=== PATIENT | male | born 1950 | race Caucasian/White ===

== ENCOUNTER 2017-02-03 10:44 | Emergency (ER) | END 2017-02-03 12:44 | disposition home or self-care (01) | DX: Z46.6 Encounter for fitting and adjustment of urinary device (principal); N30.90 Cystitis, unspecified without hematuria ==

== ENCOUNTER 2017-05-28 10:01 | Emergency (ER) | payer OTHER ==
[~2017-05-28] VITALS: Ht 170.2 cm; Wt 67.9 kg
[~2017-05-28 10:01] MED LIST: CIPR500T4 PO
[2017-05-28 10:04] VITALS: Ht 170.2 cm; Wt 67.9 kg
--- NOTE | 2017-05-28 11:30 | ERD ---
ER Documentation Chief Complaint Chief Complaint PAINFUL URINATION SINCE LAST NIGHT HPI 66y/o male patient with history of benign prostatic hyper hyperplasia with frequent episodes of urinary retention,presents to the emergency department c/o pelvic pain and unable to void for the last 12 hours. Pain is dull, rated 8/10, without radiation. The symptoms are associated with mild nausea. Denies dysuria , fever, chills, V/D. Positive history of previous episodes. Current treatment includes terazosin and Proscar, the patient has an appointment with his urologist next week ROS All systems reviewed and are negative except as per history of present illness. Medications Home Meds Active Scripts Ciprofloxacin Hcl* (Ciprofloxacin Hcl*) 500 Mg Tablet, 500 MG PO BID, #14 TAB Prov:EMILIANO HURT PA-C 02/03/17 Allergies Allergies: Coded Allergies: No Known Drug Allergies (Verified Allergy, 07/13/11) PMhx/Soc History of Surgery: No Anesthesia Reaction: No Hx Neurological Disorder: No Hx Respiratory Disorders: No Hx Cardiac Disorders: No Hx Psychiatric Problems: No Hx Miscellaneous Medical Probl: No (enlarge prostate) Hx Alcohol Use: No Hx Substance Use: No Hx Tobacco Use: No Physical Exam Vitals Vital Signs Date Time Temp Pulse Resp B/P Pulse Ox O2 Delivery O2 Flow Rate FiO2 05/28/17 14:01 98.4 71 19 132/78 100 Room Air 05/28/17 10:04 98.2 76 18 123/72 99 Physical Exam Const: Alert, oriented, in mild distress due to pain and discomfort Head: Atraumatic Eyes: Normal Conjunctiva ENT: Normal External Ears, Nose and Mouth. Neck: Full range of motion..~ No meningismus. Resp: Clear to auscultation bilaterally Cardio: Regular rate and rhythm, no murmurs Abd: Soft, pelvic distended. Normal bowel sounds Results 24 hrs Laboratory Tests Test 05/28/17 11:40 Urine Color YELLOW Urine Clarity CLEAR Urine pH 6.0 Urine Specific [place] 1.012 Urine Ketones NEGATIVEmg/dL Urine Nitrite NEGATIVEmg/dL Urine Bilirubin NEGATIVEmg/dL Urine Urobilinogen NEGATIVEmg/dL Urine Leukocyte Esterase NEGATIVELeu/ul Urine Hemoglobin NEGATIVEmg/dL Urine Glucose NEGATIVEmg/dL Urine Total Protein NEGATIVEmg/dl Procedures/MDM 66y/o male patient with history of BPH, presents to the ED c/o urinary retention for more than 12 hours. Vital signs stable, Physical exam showed distended and tender pelvic area. Differential diagnosis include but not limited to: UTI, mechanical obstruction, neurogenic bladder. Pertinent Data: Urinalysis: Within normal range Physical examination and clinical presentation consistent most likely with urinary retention secondary to BPH. During the ED course a Pickett was placed without complications obtaining clear diuresis presenting overall improvement of the symptoms. Results and medical impression discussed with patient who agrees with management. The patient will be discharged home with follow-up with his urologist next week If symptoms persist, worsen or new symptoms develop, then patient is instructed to follow-up with the primary care provider. If the patient is unable to see the primary care provider, then return to the ED immediately. Departure Diagnosis: Primary Impression: Acute urinary retention Additional Impression: BPH (benign prostatic hyperplasia) Condition: Stable Additional Instructions: Muchas kamron por [facility] para bailey servicio. Esperamos que en bailey visita a la kaylan de emergencia bailey problema medico haya sido solucionado y que se sienta mucho mejor. Para estar seguros que bailey mejoria sigue en proceso, le pedimos el favor de hacer amber tracee de seguimiento medico con bailey doctor primario en los proximos 2-4 edwards. Lleve con usted estos documentos y las medicinas recetadas. Si maya sintomas empeoran y no puede beulah a bailey doctor, por favor regrese a kaylan de emergencia. En beau que usted no tenga un mdico de atencin primaria: Llame al mdico o clnica comunitaria de referencia que aparece abajo tobias las horas de consultorio para hacer amber tracee para que le vean. CLINICAS: [facility] 673 [phone] [address] [facility] [phone] [address] [facility] [phone] [address] [facility] 322 [phone] [facility] 761 [phone] 6801 [facility] [phone] PRASANNA LONG MD May 28, 2017 11:30
--- NOTE | 2017-05-28 11:30 | ERD ---
ER Documentation Chief Complaint Chief Complaint PAINFUL URINATION SINCE LAST NIGHT HPI 66y/o male patient with history of benign prostatic hyper hyperplasia with frequent episodes of urinary retention,presents to the emergency department c/o pelvic pain and unable to void for the last 12 hours. Pain is dull, rated 8/10, without radiation. The symptoms are associated with mild nausea. Denies dysuria , fever, chills, V/D. Positive history of previous episodes. Current treatment includes terazosin and Proscar, the patient has an appointment with his urologist next week ROS All systems reviewed and are negative except as per history of present illness. Medications Home Meds Active Scripts Ciprofloxacin Hcl* (Ciprofloxacin Hcl*) 500 Mg Tablet, 500 MG PO BID, #14 TAB Prov:EMILIANO HURT PA-C 02/03/17 Allergies Allergies: Coded Allergies: No Known Drug Allergies (Verified Allergy, 07/13/11) PMhx/Soc History of Surgery: No Anesthesia Reaction: No Hx Neurological Disorder: No Hx Respiratory Disorders: No Hx Cardiac Disorders: No Hx Psychiatric Problems: No Hx Miscellaneous Medical Probl: No (enlarge prostate) Hx Alcohol Use: No Hx Substance Use: No Hx Tobacco Use: No Physical Exam Vitals Vital Signs Date Time Temp Pulse Resp B/P Pulse Ox O2 Delivery O2 Flow Rate FiO2 05/28/17 14:01 98.4 71 19 132/78 100 Room Air 05/28/17 10:04 98.2 76 18 123/72 99 Physical Exam Const: Alert, oriented, in mild distress due to pain and discomfort Head: Atraumatic Eyes: Normal Conjunctiva ENT: Normal External Ears, Nose and Mouth. Neck: Full range of motion..~ No meningismus. Resp: Clear to auscultation bilaterally Cardio: Regular rate and rhythm, no murmurs Abd: Soft, pelvic distended. Normal bowel sounds Results 24 hrs Laboratory Tests Test 05/28/17 11:40 Urine Color YELLOW Urine Clarity CLEAR Urine pH 6.0 Urine Specific [place] 1.012 Urine Ketones NEGATIVEmg/dL Urine Nitrite NEGATIVEmg/dL Urine Bilirubin NEGATIVEmg/dL Urine Urobilinogen NEGATIVEmg/dL Urine Leukocyte Esterase NEGATIVELeu/ul Urine Hemoglobin NEGATIVEmg/dL Urine Glucose NEGATIVEmg/dL Urine Total Protein NEGATIVEmg/dl Procedures/MDM 66y/o male patient with history of BPH, presents to the ED c/o urinary retention for more than 12 hours. Vital signs stable, Physical exam showed distended and tender pelvic area. Differential diagnosis include but not limited to: UTI, mechanical obstruction, neurogenic bladder. Pertinent Data: Urinalysis: Within normal range Physical examination and clinical presentation consistent most likely with urinary retention secondary to BPH. During the ED course a Pickett was placed without complications obtaining clear diuresis presenting overall improvement of the symptoms. Results and medical impression discussed with patient who agrees with management. The patient will be discharged home with follow-up with his urologist next week If symptoms persist, worsen or new symptoms develop, then patient is instructed to follow-up with the primary care provider. If the patient is unable to see the primary care provider, then return to the ED immediately. Departure Diagnosis: Primary Impression: Acute urinary retention Additional Impression: BPH (benign prostatic hyperplasia) Condition: Stable Additional Instructions: Muchas kamron por [facility] para bailey servicio. Esperamos que en bailey visita a la kaylan de emergencia bailey problema medico haya sido solucionado y que se sienta mucho mejor. Para estar seguros que bailey mejoria sigue en proceso, le pedimos el favor de hacer amber tracee de seguimiento medico con bailey doctor primario en los proximos 2-4 edwards. Lleve con usted estos documentos y las medicinas recetadas. Si maya sintomas empeoran y no puede beulah a bailey doctor, por favor regrese a kaylan de emergencia. En beau que usted no tenga un mdico de atencin primaria: Llame al mdico o clnica comunitaria de referencia que aparece abajo tobias las horas de consultorio para hacer amber tracee para que le vean. CLINICAS: [facility] 080 [phone] [address] [facility] [phone] [address] [facility] [phone] [facility] 377 [phone] [address] [facility] 921 [phone] [facility] [phone] PRASANNA LONG MD May 28, 2017 11:30
--- NOTE | 2017-05-28 11:30 | ERD ---
ER Documentation Chief Complaint Chief Complaint PAINFUL URINATION SINCE LAST NIGHT HPI 66y/o male patient with history of benign prostatic hyper hyperplasia with frequent episodes of urinary retention,presents to the emergency department c/o pelvic pain and unable to void for the last 12 hours. Pain is dull, rated 8/10, without radiation. The symptoms are associated with mild nausea. Denies dysuria , fever, chills, V/D. Positive history of previous episodes. Current treatment includes terazosin and Proscar, the patient has an appointment with his urologist next week ROS All systems reviewed and are negative except as per history of present illness. Medications Home Meds Active Scripts Ciprofloxacin Hcl* (Ciprofloxacin Hcl*) 500 Mg Tablet, 500 MG PO BID, #14 TAB Prov:EMILIANO HURT PA-C 02/03/17 Allergies Allergies: Coded Allergies: No Known Drug Allergies (Verified Allergy, 07/13/11) PMhx/Soc History of Surgery: No Anesthesia Reaction: No Hx Neurological Disorder: No Hx Respiratory Disorders: No Hx Cardiac Disorders: No Hx Psychiatric Problems: No Hx Miscellaneous Medical Probl: No (enlarge prostate) Hx Alcohol Use: No Hx Substance Use: No Hx Tobacco Use: No Physical Exam Vitals Vital Signs Date Time Temp Pulse Resp B/P Pulse Ox O2 Delivery O2 Flow Rate FiO2 05/28/17 14:01 98.4 71 19 132/78 100 Room Air 05/28/17 10:04 98.2 76 18 123/72 99 Physical Exam Const: Alert, oriented, in mild distress due to pain and discomfort Head: Atraumatic Eyes: Normal Conjunctiva ENT: Normal External Ears, Nose and Mouth. Neck: Full range of motion..~ No meningismus. Resp: Clear to auscultation bilaterally Cardio: Regular rate and rhythm, no murmurs Abd: Soft, pelvic distended. Normal bowel sounds Results 24 hrs Laboratory Tests Test 05/28/17 11:40 Urine Color YELLOW Urine Clarity CLEAR Urine pH 6.0 Urine Specific [place] 1.012 Urine Ketones NEGATIVEmg/dL Urine Nitrite NEGATIVEmg/dL Urine Bilirubin NEGATIVEmg/dL Urine Urobilinogen NEGATIVEmg/dL Urine Leukocyte Esterase NEGATIVELeu/ul Urine Hemoglobin NEGATIVEmg/dL Urine Glucose NEGATIVEmg/dL Urine Total Protein NEGATIVEmg/dl Procedures/MDM 66y/o male patient with history of BPH, presents to the ED c/o urinary retention for more than 12 hours. Vital signs stable, Physical exam showed distended and tender pelvic area. Differential diagnosis include but not limited to: UTI, mechanical obstruction, neurogenic bladder. Pertinent Data: Urinalysis: Within normal range Physical examination and clinical presentation consistent most likely with urinary retention secondary to BPH. During the ED course a Pickett was placed without complications obtaining clear diuresis presenting overall improvement of the symptoms. Results and medical impression discussed with patient who agrees with management. The patient will be discharged home with follow-up with his urologist next week If symptoms persist, worsen or new symptoms develop, then patient is instructed to follow-up with the primary care provider. If the patient is unable to see the primary care provider, then return to the ED immediately. Departure Diagnosis: Primary Impression: Acute urinary retention Additional Impression: BPH (benign prostatic hyperplasia) Condition: Stable Additional Instructions: Muchas kamron por [facility] para bailey servicio. Esperamos que en bailey visita a la kaylan de emergencia bailey problema medico haya sido solucionado y que se sienta mucho mejor. Para estar seguros que bailey mejoria sigue en proceso, le pedimos el favor de hacer amber tracee de seguimiento medico con bailey doctor primario en los proximos 2-4 edwards. Lleve con usted estos documentos y las medicinas recetadas. Si maya sintomas empeoran y no puede beulah a bailey doctor, por favor regrese a kaylan de emergencia. En beau que usted no tenga un mdico de atencin primaria: Llame al mdico o clnica comunitaria de referencia que aparece abajo tobias las horas de consultorio para hacer amber tracee para que le vean. CLINICAS: [facility] 031 [phone] [address] [facility] [phone] [address] [facility] [phone] [address] [facility] 294 [phone] [address] [facility] 063 [phone] 6801 [facility] [phone] PRASANNA LONG MD May 28, 2017 11:30
[2017-05-28 14:01] VITALS: BP 132/78; PULSE 71; RESP 19; TEMP 98.4
== END 2017-05-28 14:01 | disposition home or self-care (01) ==
LOC: FTE 10:01
DX: N40.1 Benign prostatic hyperplasia with lower urinary tract symptoms (principal)
CPT/HCPCS: 81003

== ENCOUNTER 2017-06-07 10:52 | Emergency (ER) | payer OTHER ==
[~2017-06-07] VITALS: Ht 162.6 cm; Wt 68.8 kg
[2017-06-07 11:00] VITALS: Ht 162.6 cm; Wt 68.8 kg
[2017-06-07] MEDS ORDERED: ONDANSETRON 4 MG INJ IV STA (12:31)
[2017-06-07] MEDS ORDERED: SOD CHLORIDE 0.9% 500 ML IV STA (12:31)
[2017-06-07] MEDS ORDERED: HYDROmorphONE 1 MG/ML SYG IV STA (12:31)
[2017-06-07 12:53] LABS: AADO2 Arterial 17.9 mmHg (7.0-24.0); Allen Test ACCEPTAB; Arterial Base Excess 2.5 mmol/L (-3.0-3); Arterial COHb 0 % (0.0-3.0); Arterial Fraction of Oxyhgb 96.9 % (93.0-99.0); Arterial HCO3 25.8 mmol/L (22.0-26.0); Arterial MetHb 0.1 % (0.0-1.5); Arterial Total Hemglobin 15.9 g/dl (12.0-18.0); MODE ROOM AIR
[2017-06-07 13:22] LABS: BASOPHIL # 0.1 10^3/ul (0.0-0.1); BASOPHILS % 0.8 % (0.0-2.0); EOSINOPHILS # 0.1 10^3/ul (0.0-0.5); EOSINOPHILS % 1.2 % (0.0-7.0); HEMATOCRIT 44.5 % (42.0-52.0); HEMOGLOBIN 15.2 g/dl (14.0-18.0); LYMPHOCYTES % 19.8 % (15.0-51.0); MEAN CORPUSCULAR HEMOGLOBIN 30.5 pg (29.0-33.0); MEAN CORPUSCULAR HGB CONC 34.2 g/dl (32.0-37.0); MEAN CORPUSCULAR VOLUME 89.4 fl (82.0-101.0); MEAN PLATELET VOLUME 10.7 fl (7.4-10.4); MONOCYTE # 0.5 10^3/ul (0.3-0.9); NEUTROPHIL # 7.2 10^3/ul (1.6-7.5); NEUTROPHILS % 72.8 % (39.0-77.0); PLATELET COUNT 217 10^3/UL (140-415); RED BLOOD COUNT 4.98 10^6/ul (4.70-6.10); RED CELL DISTRIBUTION WIDTH 13.2 % (11.5-14.5); WHITE BLOOD COUNT 9.9 10^3/ul (4.8-10.8)
[2017-06-07 13:33] LABS: ADD UMIC YES; UR ASCORBIC ACID NEGATIVE (NEGATIVE); UR BILIRUBIN (Dip) NEGATIVE (NEGATIVE); UR BLOOD (Dip) 3+ mg/dL (NEGATIVE); UR CLARITY CLOUDY (CLEAR); UR COLOR RED (YELLOW); UR GLUCOSE (Dip) NEGATIVE (NEGATIVE); UR KETONES (Dip) NEGATIVE (NEGATIVE); UR LEUKOCYTE ESTERASE (Dip) 3+ Leu/ul (NEGATIVE); UR NITRITE (Dip) POSITIVE (NEGATIVE); UR NONSQUAMOUS EPITHELIAL CELL 2 /HPF (NONE SEEN); UR RBC > 182 /HPF (0-5); UR SPECIFIC GRAVITY (Dip) 1.014 (1.003-1.030); UR TOTAL PROTEIN (Dip) 2+ mg/dl (NEGATIVE); UR UROBILINOGEN (Dip) NEGATIVE (NEGATIVE)
[2017-06-07] MEDS ORDERED: TAMS-14 PO (13:36)
[2017-06-07] MEDS ORDERED: FINA5TAB4 PO (13:36)
[2017-06-07 13:43] LABS: CALCIUM 8.9 mg/dl (8.4-10.2); CREATININE 0.83 mg/dl (0.61-1.24)
[2017-06-07] MEDS ORDERED: CEFTRIAXONE 1 GM/50 ML (PMX) 50 ML IVPB ONE (14:00)
[2017-06-07] MEDS ORDERED: SULF1TAB31 PO (14:46)
[2017-06-07] MEDS ORDERED: NITR-58 PO (14:46)
[2017-06-07] MEDS ORDERED: HYDR-902 PO (14:47)
--- NOTE | 2017-06-07 14:49 | ERD ---
ER Documentation Chief Complaint Chief Complaint Pt with painful urination x 3 days and blood in urine. Pickett in place/reten HPI This is a 66-year-old male with a history of BPH she has had a Pickett catheter in place for 12 days. He says he is having some suprapubic pain with some hematuria with a light pink colored urine. No fever no perennial pain. No back pain or flank pain no nausea vomiting. ROS All systems reviewed and are negative except as per history of present illness. Medications Home Meds Active Scripts Hydrocodone/Acetaminophen ([place] 10-325 Tablet) 1 Each Tablet, 1 TAB PO Q6H Y for PAIN, #10 TAB Prov:ADOLPH PALACIOSS A. DO 06/07/17 Sulfamethoxazole/Trimethoprim* (Bactrim Ds* Tablet) 1 Each Tablet, 1 TAB PO DAILY for 10 Days, TAB Prov:ADOLPH PALACIOSS A. DO 06/07/17 Nitrofurantoin Monohyd Macrocr* (Macrobid*) 100 Mg Capsr, 100 MG PO HS for 10 Days, CAP Prov:LEN PALACIOSSTDORENES A. DO 06/07/17 Reported Medications Finasteride* (Finasteride*) 5 Mg Tablet, 5 MG PO DAILY, TAB 06/07/17 Tamsulosin Hcl* (Flomax*) 0.4 Mg Cap.er.24h, 0.4 MG PO DAILY, CAP 06/07/17 Discontinued Scripts Ciprofloxacin Hcl* (Ciprofloxacin Hcl*) 500 Mg Tablet, 500 MG PO BID, #14 TAB Prov:EMILIANO HURT PA-C 02/03/17 Allergies Allergies: Coded Allergies: No Known Drug Allergies (Verified Allergy, Unknown, 06/07/17) PMhx/Soc History of Surgery: No Anesthesia Reaction: No Hx Neurological Disorder: No Hx Respiratory Disorders: No Hx Cardiac Disorders: No Hx Psychiatric Problems: No Hx Miscellaneous Medical Probl: Yes (enlarge prostate) Hx Alcohol Use: No Hx Substance Use: No Hx Tobacco Use: No Smoking Status: Never smoker FmHx Family History: No coronary disease Physical Exam Vitals Vital Signs Date Time Temp Pulse Resp B/P Pulse Ox O2 Delivery O2 Flow Rate FiO2 06/07/17 11:00 96.9 80 18 133/77 99 Physical Exam Const: Well-developed, well-nourished Head: Atraumatic, normocephalic Eyes: Normal Conjunctiva, PERRLA, EOMI, normal sclera, no nystagmus ENT: Normal External Ears, Nose and Mouth, moist mucus membranes. Neck: Full range of motion. No meningismus, no lymphadenopathy. Resp: Clear to auscultation bilaterally, no wheezing, rhonchi, rales Cardio: Regular rate and rhythm, no murmurs, S1 S2 present Abd: Soft, tender suprapubic region. Pickett catheter in place, non distended. Normal bowel sounds, no guarding or rebound, no pulsitile abdominal masses or bruits Skin: No petechiae or rashes, no ecchymosis , no maculopapular rash Back: No midline or flank tenderness Ext: No cyanosis, or edema, FROM x 4, normal inspection, neurovascularly intact x 4 Neur: Awake and alert, STR 5/5 x 4, sensation intact x 4, no focal findings, cerebellum intact Psych: Normal Mood and Affect Result Diagram: 06/07/17 1305 06/07/17 1305 Results 24 hrs Laboratory Tests Test 06/07/17 12:00 06/07/17 13:05 Blood Gas Specimen Source Blood arterial Arterial Blood Date Drawn 06/07/2017 12:46:30 PM Arterial Blood pH (Temp corrected) 7.476 Arterial Blood pCO2 (Temp correct) 35.7mmhg Arterial Blood pO2 (Temp corrected) 89.1mmHG Arterial Blood HCO3 25.8mmol/L Arterial Blood Base Excess 2.5mmol/L Arterial Blood Oxygen Saturation 97.0mmHG Edin Test ACCEPTAB Arterial Blood Gas Puncture Site Right Radial Arterial Blood Carboxyhemoglobin 0% Arterial Blood Methemoglobin 0.1% Blood Gas A-a O2 Differential 17.9mmHg Oxyhemoglobin Percent 96.9% Total Hemoglobin 15.9g/dl Blood Gas Temperature 37.0C Blood Gas Modality ROOM AIR FiO2 21.0% Blood Gas Notified Whom AT Blood Gas Notified Time 06/07/2017 12:53:17 PM White Blood Count 9.910^3/ul Red Blood Count 4.9810^6/ul Hemoglobin 15.2g/dl Hematocrit 44.5% Mean Corpuscular Volume 89.4fl Mean Corpuscular Hemoglobin 30.5pg Mean Corpuscular Hemoglobin Concent 34.2g/dl Red Cell Distribution Width 13.2% Platelet Count 27754^3/UL Mean Platelet Volume 10.7fl Neutrophils % 72.8% Lymphocytes % 19.8% Monocytes % 5.0% Eosinophils % 1.2% Basophils % 0.8% Nucleated Red Blood Cells % 0.0/100WBC Neutrophils # 7.210^3/ul Lymphocytes # 2.010^3/ul Monocytes # 0.510^3/ul Eosinophils # 0.110^3/ul Basophils # 0.110^3/ul Nucleated Red Blood Cells # 0.010^3/ul Urine Color RED Urine Clarity CLOUDY Urine pH 9.0 Urine Specific [place] 1.014 Urine Ketones NEGATIVEmg/dL Urine Nitrite POSITIVEmg/dL Urine Bilirubin NEGATIVEmg/dL Urine Urobilinogen NEGATIVEmg/dL Urine Leukocyte Esterase 3+Joseph/ul Urine Microscopic RBC > 182/HPF Urine Microscopic WBC > 182/HPF Urine Hemoglobin 3+mg/dL Urine Glucose NEGATIVEmg/dL Urine Total Protein 2+mg/dl Sodium Level 142mmol/L Potassium Level 4.0mmol/L Chloride Level 103mmol/L Carbon Dioxide Level 29mmol/L Anion Gap 14 Blood Urea Nitrogen 11mg/dl Creatinine 0.83mg/dl Glucose Level 99mg/dl Calcium Level 8.9mg/dl Current Medications Medications (Trade) Dose Ordered Sig/Andrew Route PRN Reason Start Time Stop Time Status Last Admin Dose Admin Sodium Chloride (NS) 500 ml @ 500 mls/hr Q1H STAT IV 06/07/17 12:31 06/07/17 13:30 DC 06/07/17 13:27 Hydromorphone HCl (Dilaudid) 1 mg ONCE STAT IV 06/07/17 12:31 06/07/17 12:34 DC 06/07/17 13:27 Ondansetron HCl 4 mg 4 mg ONCE STAT IV 06/07/17 12:31 06/07/17 12:34 DC 06/07/17 13:27 Ceftriaxone Sodium (Rocephin) 50 ml @ 100 mls/hr ONCE ONCE IVPB 06/07/17 14:00 06/07/17 14:29 DC 06/07/17 14:15 Procedures/MDM Patient has urinary tract infection. Sent off culture. We will discharge home with Macrobid and Bactrim. The patient received Rocephin IV here. We will DC Pickett and discharge patient home patient wants to try to not have the catheter in. The patient has a appointment with his urologist tomorrow morning. Departure Diagnosis: Primary Impression: Urinary tract infection Urinary tract infection type: acute cystitis Hematuria presence: with hematuria Qualified Code: N30.01 - Acute cystitis with hematuria Condition: Stable Patient Instructions: Understanding Urinary Tract Infections (UTIs) CHERRY PALACIOS DO Jun 07, 2017 14:49
== END 2017-06-07 15:04 | disposition home or self-care (01) ==
LOC: E/R 10:52
DX: N30.01 Acute cystitis with hematuria (principal)
CPT/HCPCS: 36415; 36600; 80048; 81001; 82803; 85025; 87086; 96374; 96375; 99284; J0696; J1170; J2405; J7040

== ENCOUNTER 2017-09-17 11:02 | Emergency (ER) | END 2017-09-17 13:10 | disposition home or self-care (01) ==